=== PATIENT | female | born 1975 | race Caucasian/White ===

== ENCOUNTER 2017-03-14 07:20 | Inpatient (IN) ==
--- NOTE | 2017-03-14 07:32 | EKG Report ---
Stationary ECG Study [facility] Test Date: 03/14/2017 7:27:10 AM Pat Name: DONNIE NICOLE Department: Room: Gender: F Grooming Assistant: : 1975 Requested by: Driss Cheng Order Number: [id number] Reading MD: MAYO PALMA Intervals [place] Rate: 59 P: 21 [place]: 143 QRS: 32 QRSD: 92 T: 66 QT: 422 QTc: 420 Interpretive Statements SINUS RHYTHM MODERATE ST DEPRESSION IN THE HIGH LATERAL LEADS AND INFERIOR ST ELEVATION WITH INFERIOR Q WAVES POSSIBLE INJURY PATTERN OR Q WAVE MYOCARDIAL INFARCTION IN EVOLUTION Electronically Signed On 03-14-17 17:26:52 CDT by MAYO PALMA [email or web address]
[2017-03-14] MEDS ORDERED: HEPARIN/NACL 0.9% 2 UNITS/ML 1,000 ML IV ONE (08:19)
[2017-03-14] MEDS ORDERED: LIDOCAINE 1% 20 ML VIAL ONE (08:19)
[2017-03-14 08:20] LABS: CKMB % 7.1 %
[2017-03-14] MEDS ORDERED: HEPARIN/NACL 0.9% 2 UNITS/ML 500 ML IV ONE (08:20)
[2017-03-14] MEDS ORDERED: fentaNYL 100 MCG/2 ML VIAL ONE (08:20)
[2017-03-14] MEDS ORDERED: MIDAZOLAM 2 MG/2 ML VIAL ONE (08:20)
[2017-03-14] MEDS ORDERED: POTASSIUM CHLORIDE 20 MEQ TABLET PO PRN (08:26)
[2017-03-14] MEDS ORDERED: MAGNESIUM SULF RIDER 2 GM in PREMIX 1 EACH IV PRN (08:26)
--- NOTE | 2017-03-14 08:26 | Cardiology History & Physical ---
<Demetria Fitzpatrick E - Last Filed: 03/14/17 08:30> Assessment and Plan - Time spent with patient Time spent with patient: Greater than 30 minutes (1) Acute coronary syndrome Status: Acute Assessment and plan: SEE PLAN OF CARE LISTED BELOW Current Visit: Yes (2) Hypertension Status: Chronic Assessment and plan: SEE PLAN OF CARE LISTED BELOW Current Visit: Yes (3) Dyslipidemia Status: Chronic Assessment and plan: SEE PLAN OF CARE LISTED BELOW Current Visit: Yes (4) Luca's thyroiditis Status: Chronic Assessment and plan: SEE PLAN OF CARE LISTED BELOW Current Visit: Yes (5) Family history of premature coronary artery disease Status: Chronic Assessment and plan: SEE PLAN OF CARE LISTED BELOW Current Visit: Yes History of Present Illness Chief complaint: Chest pain History of present illness: SWIMMING POOL INSTALLER: DR. CHESTER Patient is being seen in the emergency department. 42WF with risk factors significant for: hypertension, dyslipidemia, family history of premature coronary artery disease. History of Luca's thyroiditis diagnosed approximately 1 month ago. Patient had stress test with Dr. Chester approximately 3 months ago and received favorable results. Transferred from [facility] via ambulance after experiencing chest discomfort around 0500 this morning. Chest discomfort woke her from her sleep, described as sharp and stabbing radiating through to her back, worse with deep inspirations. Discomfort waxed and waned. Rates the discomfort as a 7 on a scale of 1-10, currently at a 4 on a 1-10. She did confirm numbness, tingling of both arms, nausea and shortness of breath. She was found to have elevated ST segments in several leads, given Nitroglycerin paste, Aspirin, Lovenox and Morphine. Initial troponin found to be minimally elevated, arrival to ER troponin noted be 2.23. Dr. Allred is present and has discussed the risk and benefits of cardiac catheterization. Patient and are ready to proceed. ASSESSMENT/PLAN: 1. ACS - patient has received aspirin, therapeutic dose of Lovenox, morphine, nitroglycerin paste. She has been taking emergently to the cardiac catheterization lab. 2. HYPERTENSION - will adjust medications accordingly during hospital stay 3. DYSLIPIDEMIA - fasting lipid profile, adjusting statins according 4. LUCA'S THYROIDITIS - recently diagnosed with Luca's thyroiditis. Will obtain a TSH/T4 during hospital stay 5. FAMILY HISTORY PREMATURE CORONARY ARTERY DISEASE - mother had WI in her 40s. Allergies Allergy/AdvReac Type Severity Reaction Status Date / Time Penicillins Allergy Unknown/Unable Verified 03/14/17 07:28 to obtain Review of systems: REVIEW OF SYSTEMS: - Constitutional Constitutional: Present: Fatigue. Absent: syncope, anorexia, night sweats - EENT Eyes: Absent: blurry vision, loss of vision, diplopia Ears: Absent: decreased hearing, ear pain, ear discharge - Cardiovascular Cardiovascular: Present: chest pain with exertion and at rest, dyspnea on exertion. Chest pain worse with deep breath. Denies edema, palpitations. - Respiratory Respiratory: Present: BLANK, denies cough. Absent: wheezing, hemoptysis, change in phlegm color - Gastrointestinal Gastrointestinal: Denies: constipation. Absent: abdominal pain, hematemesis, hematochezia, melena, change in bowel habits, nausea - Genitourinary Genitourinary: Absent: difficulty urinating, dysuria, urinary hesitancy, flank pain - Musculoskeletal Musculoskeletal: Present: Chest pain radiating through to her back between her scapula. Absent: joint swelling, muscle cramps, muscle weakness - Neurological Neurological: Present: normal gait without frequent falls. Absent: dizziness, hemiparesis - Psychiatric Psychiatric: Absent: anxiety, depression, difficulty concentrating - Endocrine Endocrine: Present: fatigue. Absent: cold intolerance, heat intolerance, polyuria, polyphagia, polydipsia - Hematologic/Lymphatic Hematologic/Lymphatic: Present: easy bruising. Absent: easy bleeding -Integumentary Integumentary: Absent: lesions, rashes, skin breakdown Medical,Surgical,& Family Hx - Medical History Cardio: History of: Hypertension No history of: CAD, WI Psychological: History of: Anxiety Disorders Endocrine: History of: Dyslipidemia, Thyroid Disorder (hasimoto) Respiratory: History of: Pulmonary Embolism - Social History Smoking Status: Never smoker Have you smoked in the last 12 months: No Frequency of Alcohol Use: None Type of Drug Use: None Marital Status: Lives With:: Spouse Functional capacity: independent ambulation Cardiology Physical Exam - Constitutional Vitals: Vital Signs Temp Pulse Resp BP Pulse Ox 96.9 F L 68 18 153/109 100 03/14/17 07:18 03/14/17 07:18 03/14/17 07:34 03/14/17 07:18 03/14/17 07:18 Intake and Output 03/13/17 03/14/17 03/14/17 23:59 07:59 15:59 Other: Weight 76.657 kg Patient Weight 03/14/17 23:59 Weight 76.657 kg Exam: General: [Appears well with no apparent distress.] [Pleasant and cooperative. ] [Appears comfortable.] HEENT: [PERRL, normocephalic, atraumatic. Mucous membranes moist. No jaundice noted. Conjunctiva moist and clear, sclerae anicteric] Neck: No JVD/HJR, no thyromegaly or lymphadenopathy noted. No carotid bruit appreciated Cardiac: [Regular rate and rhythm.] [No murmur rub or gallop.] Lungs: [Clear to auscultation without accessory muscle use to assist the respiratory pattern.] Oxygen in use via nasal cannula Abdomen: Soft, bowel sounds normoactive. Nontender and nondistended. No abdominal bruit or thrill noted. No masses noted. Musculoskeletal: No fluid collection. Decreased range of motion is noted. Extremities: No clubbing, cyanosis noted. [ No edema noted.] Upper extremity pulses 2+. Lower extremity pulses 2+. Capillary refill less than 3 seconds. Skin: No unusual lesions or rashes. No skin breakdown appreciated. Neuro: Awake, alert and oriented 3. Moves all extremities well without hemiparesis or paralysis. No essential tremor is appreciated. Result/EKG - Labs Lab Results: I have reviewed the past 24 hour labs - Diagnostic Findings Procedure: Chest x-ray: pending - EKG EKG results: interpreted by me EKG shows: sinus rhythm <Lisa Allred - Last Filed: 03/14/17 09:44> History of Present Illness History of present illness: I have personally interviewed and evaluated the patient, reviewed the chart and discussed medical decision-making with Practitioner Amari. I have read this note and agree with her documentation here in. Additionally she was diagnosed with a pulmonary embolism in July completed 6 months of therapy, recently stopped her Eliquis. Her initial ECG was borderline for meeting criteria of inferior ST elevation, subsequent ECGs were less impressive. However her cardiac biomarkers are minimally positive. She is continuing to have chest discomfort Although it is dramatically improved from her initial presentation. She denies IV contrast allergy, her thyroiditis is currently being treated. She has no contraindication to dual antiplatelet therapy. The patient was evaluated emergently in the emergency room and taken emergently to the Cut Out Worker. She was found to have 100% occluded distal right coronary artery which was treated with percutaneous stenting. She has relatively small left coronary arteries, and has some small vessel disease as well that is best medically managed. Cardiology Physical Exam - Constitutional Vitals: Vital Signs Temp Pulse Resp BP Pulse Ox 96.9 F L 68 18 153/109 100 03/14/17 07:18 03/14/17 07:18 03/14/17 07:34 03/14/17 07:18 03/14/17 07:18 Intake and Output 03/13/17 03/14/17 03/14/17 23:59 07:59 15:59 Other: Weight 76.657 kg Patient Weight 03/14/17 23:59 Weight 76.657 kg Result/EKG - Labs Labs: Laboratory Results - last 24 hr 03/14/17 07:34 Total Creatine Kinase 426 H CK-MB (CK-2) 30.2 H CK and CKMB Interp 7.1 Troponin I 2.230 H
[2017-03-14 08:31] LABS: Troponin I Only 2.23 NG/ML (0.00-0.045)
[2017-03-14] MEDS ORDERED: ENOXAPARIN 30 MG/0.3 ML SYRINGE ONE (08:32)
[2017-03-14] MEDS ORDERED: EPTIFIBATIDE 20,000 MCG/10 ML VIAL ONE (08:33)
[2017-03-14] MEDS ORDERED: EPTIFIBATIDE 75 MG/100 ML BOTTLE IV ONE (08:40)
[2017-03-14] MEDS ORDERED: TICAGRELOR 90 MG TABLET ONE (09:01)
--- NOTE | 2017-03-14 09:25 | Emergency Department Note ---
Micaela Hutchinson Rolonda, am scribing for, and in the presence of, Driss Juarez MD 08:32. Ann Hutchinson Phillip K, MD, personally performed the services described in this documentation, ascribed by Ed Hinojosa in my presence, and it is both accurate and complete 924 . Arrival - Arrival Chief Complaint: Chest Pain ED Nursing Triage Note: [facility] pt had a troponin of 0.290. denies pain Mode of Arrival: Stretcher Limitations: No Limitations Source: Patient, Old Records Reviewed, RN Notes Reviewed - History of Present Illness HPI Narrative: Pt is a 42 y/o female who was transferred to ED for further evaluation of sharp mid chest pain with an onset of earlier this morning. Pt has a PMHx of HTN and HLD. She states that she awakened with mid chest pain this morning, went to [facility], and was transferred here. She states that the chest pain spread to her back and worsens with deep inspirations. Pt states that she had a stress test performed by Dr. Jade x3 months ago and results were nml. Pt confirms associated sxs of tingling/ numbness in both arms, AOB, N/V, and dyspnea on exertion. She states that she was give NTG patch and Morphine. No other complaint/pain in ED. Onset (ago): hour(s) Consistency: constant Severity: moderate Severity scale (1-10): 4 Quality: sharp Allergies/Adverse Reactions: Allergies Allergy/AdvReac Type Severity Reaction Status Date / Time Penicillins Allergy Unknown/Unable Verified 03/14/17 07:28 to obtain Review of System - Review of System 12 point system: reviewed and no additional remarkable complaints except as stated - Review of System Constitutional: Absent: chills Eyes: Absent: discharge Head/Ears/Nose/Throat: Absent: earache Respiratory: Present: respiratory distress. Absent: cough Cardiovascular: Present: dyspnea on exertion Gastrointestinal: Present: nausea, vomiting. Absent: abdominal pain Genitourinary female: Absent: dysuria Musculoskeletal: Absent: arm pain, back pain Skin: Absent: rash Neurological: Present: numbness, paresthesias. Absent: headache Psychiatric: Absent: anxiety Endocrine: Absent: cold intolerance Hematological/Lymphatic: Absent: easy bleeding Allergic/Immunologic: Absent: facial swelling Medical,Surgical,& Family Hx - Medical History Cardio: History of: Hypertension Psychological: History of: Anxiety Disorders Endocrine: History of: Dyslipidemia, Thyroid Disorder (hasimoto) Respiratory: History of: Pulmonary Embolism - Social History Smoking Status: Never smoker Frequency of Alcohol Use: None Type of Drug Use: None Exam Vital Signs: Vital Signs Temperature 96.9 F L 03/14/17 07:18 Pulse Rate 68 03/14/17 07:18 Respiratory Rate 18 03/14/17 07:34 Blood Pressure 153/109 03/14/17 07:18 O2 Sat by Pulse Oximetry 100 03/14/17 07:18 - General General appearance: alert, in no apparent distress - Head Head exam: Present: atraumatic, normocephalic - Eye Eye exam: Present: PERRL, EOMI - ENT ENT exam: Present: mucous membranes moist. Absent: mucous membranes dry - Neck Neck exam: Present: full ROM. Absent: tenderness - Chest Chest inspection: Present: symmetric chest wall rise, tenderness (anterior chest wall) - Respiratory Respiratory exam: Present: normal lung sounds bilaterally. Absent: rales - Cardiovascular Cardiovascular exam: Present: regular rate, normal rhythm, normal heart sounds - Abdominal Exam Abdominal exam: Present: soft, normal bowel sounds. Absent: tenderness - Rectal Exam Rectal exam: Present: deferred - Extremities Exam Extremities exam: Present: normal inspection - Back Exam Back exam: Present: normal inspection - Neurological Exam Neurological exam: Present: alert, oriented X3. Absent: motor sensory deficit - Psychiatric Psychiatric exam: Present: normal affect, normal mood - Skin Skin exam: Present: warm, dry Course Course Narrative: Patient discussed with Dr. Allred who saw the patient in the ED and took to the Director Of Digital Platforms. Her EKG at [facility] was suggested for a possible ST elevation in leads III and aVF. Her repeat EKG here was also questionable. Patient did have an increase in her cardiac enzymes from 0.015 to result 0.29 [facility]. Attempted to call Dr. Allred at [phone]. Results - Labs Lab Results: I have reviewed the patients labs (Patient's her troponin was 2.2 with a CK-MB of 30.) - EKG EKG results: interpreted by ERMD, sinus rhythm (Suggestive of ST elevation in leads III and aVF. Patient also has Q waves in 3 and aVF) Disposition Clinical Impression: Chest pain, Acute inferior myocardial infarction Clinical Impression: (Ruled Out): Possible acute myocardial infarction, Case discussed with: patient, patient's family Disposition: Still a Patient Condition: Guarded
[2017-03-14] MEDS ORDERED: NITROGLYCERIN SL 0.4 MG TABLET SL PRN (09:35)
[2017-03-14] MEDS ORDERED: ONDANSETRON 4 MG/2 ML VIAL IV PRN (09:35)
[2017-03-14] MEDS ORDERED: ACETAMINOPHEN/CODEINE 300-30 MG TABLET PO PRN (09:35)
[2017-03-14] MEDS ORDERED: ZALEPLON 5 MG CAPSULE PO PRN (09:35)
[2017-03-14] MEDS ORDERED: ACETAMINOPHEN 325 MG TABLET PO PRN (09:35)
--- NOTE | 2017-03-14 09:45 | History and Physical Update ---
Sedation H&P Update - History and Physical H&P was reviewed, the patient examined and there: are no changes in the patients condition since last H&P was completed. - Dictation Physical: refer to H&P completed by admitting physician - Physical Exam Mental Status: alert and oriented Heart: regular rate and rhythm Lung: clear to auscultation Abdomen: within normal limits Vitals: within normal limits History and Physical Changes: This is a late entry because the patient was taken emergently to the Fast Food Supervisor. - Sedation Plan for Sedation: moderate Patient Consent: Procedure disscussed with patient and patinet has consented., Risks and benefits were discussed with patient,including infection,, bleeding, injury to surrounding structures, seizure, temporary nerve, Patient understands and accepts potential risks/benefits and agrees to, proceed. ASA Class: IV Airway Assessment: Class II: Soft palate, uvula, fauces visible
[2017-03-14] MEDS ORDERED: SODIUM CHLORIDE 0.45% 1,000 ML IV SCH (10:00)
--- NOTE | 2017-03-14 10:10 | Cardiology Operative Report ---
Date of Procedure:: 03/14/17 Pre-op diagnosis: NSTEMI Post-op diagnosis: other (Severe 3V-CAD) Procedure: 1. Selective left and right coronary angiography. 2. Left heart catheterization with left ventriculogram. 3. Right iliac angiography to rule out vascular complications. 4. Percutaneous intervention of the distal RCA with placement of Synergy 3x20 mm drug-eluting stent. 5. Application of Mynx hemostasis device to the right femoral arteriotomy site. Impression: 1. Severe three-vessel coronary artery disease. A. Distal right coronary artery is 100% stenosis. B. Mid LAD with 70% stenosis, 2 mm caliber. C. First obtuse marginal with 80% stenosis, less than 2 mm caliber. 2. Right dominant coronary arteries. 3. Ejection fraction 60 %. 4. Angiographically normal right iliac artery without evidence of vascular complications. 5. Successful PCI of the distal right coronary artery as described above. Plan: 1. DAPT > 12 months. 2. Risk factor modification. 3. Medical management of the other residual coronary disease. Equipment: Diagnostic 6 Ghanaian JL4, pigtail catheters, 4 Ghanaian JR 3.5 Guiding 6 Ghanaian JR 3.5 sidehole catheter, 300 cm Intertwine wire, over the wire mini trek 2 x 12 mm balloon, synergy 3 x 20 mm drug-eluting stent, Trek 3 x 15 mm non-compliant balloon Hemodynamics: Aortic pressure 152/53 mmHg, left ventricular pressure 158/11 mmHg, LVEDP 15 mmHg Sedation: Versed 2 mg, fentanyl 50 mcg Procedure: After informed consent was obtained the patient was prepped and draped in sterile fashion. The right groin was infiltrated with 1% lidocaine and the right femoral artery was accessed via modified Seldinger technique using a micropuncture needle and a 6 Ghanaian femoral arterial sheath was placed. All catheter exchanges were performed over a guidewire under fluoroscopic guidance. Diagnostic 6 [place]ian JL4 and guiding 6 Ghanaian JR4 catheters were advanced to the left and right coronary arteries respectively and multiple cineangiograms were performed in varying degrees of obliquity and angulation. The patient then underwent percutaneous coronary intervention of the right coronary artery as described below. Thereafter a pigtail catheter was advanced into the left ventricle where hemodynamics were obtained followed by left ventriculogram. At conclusion of the procedure right iliac angiography was performed to rule out vascular complications. A Mynx hemostasis device was unsuccessfully applied to the right femoral arteriotomy site. Findings: 1. The left main artery is angiographically normal. 2. The left anterior descending artery extends to the apex. In general it is a small vessel, particularly in the mid to distal segment. There are diffuse luminal irregularities with up to 70% stenosis after the second diagonal artery. The caliber of the vessels approximately 2 mm in this region. 3. There is not an intermediate ramus branch. 4. The circumflex artery is a nondominant vessel. There are luminal irregularities throughout the system. The first marginal artery has approximately 80% stenosis, but the vessel caliber is less than 2 mm. 5. The right coronary artery has luminal irregularities throughout culminating with 100% stenosis in the distal segment. There is also severe stenosis in the more distal portion of the posterior lateral branch, where the vessel caliber is less than 1 mm. The right coronary artery is dominant. 6. Ejection fraction is 60 % with mild hypokinesis of the basal to mid inferior wall. 7. No significant mitral regurgitation. 8. No significant aortic stenosis. 9. The right iliac artery is angiographically normal without evidence of vascular complications. PCI: The patient was anticoagulated with Lovenox. A guiding 6 Ghanaian JR4 catheter was initially introduced into the artery for diagnostic angiography, but there was significant pressure waveform dampening. This was then exchanged for a guiding 6 Ghanaian JR 3.5 sidehole which catheter was advanced to the right coronary artery. A [place] 300 cm wire was used to traverse the right coronary artery. A mini trek over the wire 2 x 12 mm balloon was advanced to the site of stenosis and angioplasty was performed at 14 jane. Thereafter, a synergy 3 x 20 mm drug-eluting stent was advanced to the site of angioplasty, and successfully deployed at 11 jane. Afterwards, a non-compliant trek 3 x 15 mm balloon was advanced into the stented segment and post-dilation was performed at 14 jane. Satisfactory angiographic result was obtained with appropriate step- up proximally and distally, and no evidence of residual vascular complications. Preoperatively there was 100% stenosis with JEN 0 flow, postoperatively there is 0% residual stenosis with JEN-3 flow. Contrast use: Omnipaque 179 cc Fluoro time: 11.7 minutes Complications: none Specimens removed: none Devices implanted: stent and mynx as described above Anesthesia: moderate conscious sedation Surgeon / Physician: Lisa Allred Header Set Up Operator: none (Sukumar Flores) Estimated blood loss: minimal Specimens: none sent Condition: stable Disposition: ICU/CCU
[2017-03-14] MEDS: PANTOPRAZOLE 40 MG TABLET PO SCH (11:04)
[2017-03-14] MEDS: METOPROLOL TARTRATE 5 MG/5 ML VIAL IV SCH ×2 (11:31→11:32)
[2017-03-14 11:47] LABS: CKMB % 8.5 %
[2017-03-14 11:50] LABS: Troponin I Only 60.2 NG/ML (0.00-0.045)
[2017-03-14 11:56] LABS: Free T4 (Free Thyroxine) 1.12 NG/DL (0.76-1.46); Thyroid Stimulating Hormone 1.33 uIU/ml (0.358-3.74)
[2017-03-14] MEDS ORDERED: NITROGLYCERIN 2% OINT 1 INCH/GM PACK TOP SCH (12:00)
--- NOTE | 2017-03-14 12:00 | EKG Report ---
Stationary ECG Study [facility] Test Date: 03/14/2017 11:57:58 AM Pat Name: DONNIE NICOLE Department: Room: 120 Gender: F Metal Checker: : 1975 Requested by: Demetria Woodall Order Number: [id number] Reading MD: MAYO PALMA Intervals [place] Rate: 62 P: 20 [place]: 134 QRS: 17 QRSD: 81 T: 31 QT: 425 QTc: 430 Interpretive Statements SINUS RHYTHM Electronically Signed On 03-14-17 19:13:33 CDT by MAYO PALMA [email or web address]
[2017-03-14 14:07] LABS: Apearance,Urine CLEAR (Clear); Bilirubin,Urine Negative (Negative); Blood, Urine Moderate mg/dL (Negative); Glucose,Urine (UA) Negative (Negative); Ketones,Urine Negative (Negative); Mucus,Urine Occasional /LPF (Occasional); Nitrite,Urine Negative (Negative); Protein,Urine 30 MG/DL; RBC,Urine 5 /HPF (0-4); Squamous Epithelial Cell,Urine Few /HPF (0-10); Urine Color Yellow (Yellow); Urine Specific Gravity > 1.060 (1.001-1.035); Urine Urobilinogen < 2.0 EU/DL (0.2-1.0); WBC,Urine 4 /HPF (0-6)
[2017-03-14 14:08] LABS: Barbiturates Screen,Urine Negative (Negative); Benzodiazepines Screen,Urine Positive (Negative); Cannabinoid Screen,Urine Negative (Negative); Opiate Screen,Urine Positive (Negative); Phencyclidine Screen,Urine Negative (Negative)
--- NOTE | 2017-03-14 14:43 | EKG Report ---
Stationary ECG Study [facility] Test Date: 03/14/2017 2:41:59 PM Pat Name: DONNIE NICOLE Department: Room: 120 Gender: F Manager Creative: DANIEL : 1975 Requested by: Demetria Woodall Order Number: [id number] Reading MD: MAYO PALMA Intervals [place] Rate: 72 P: 29 DE: 129 QRS: 30 QRSD: 84 T: 33 QT: 404 QTc: 428 Interpretive Statements SINUS RHYTHM Electronically Signed On 03-14-17 19:16:16 CDT by MAYO PALMA [email or web address]
--- NOTE | 2017-03-14 15:41 | ECHO Report ---
Angie Barney Exam Date: 03/14/2017 12:26 Referring Physician: Technologist: Carmita Webb Age: 42 Ht (in): 65 Wt (lb): 169 Gender: F Exam Location: [facility] Echo Indications: chest pain, dyslipidemia, thyroid disorder, hx. pulmonary embolism BP: 153 / 109 HR: 68 Rhythm: Sinus Technical Quality: limited IMPRESSIONS Left ventricular ejection fraction is estimated at 55-60 %. Diastolic parameters are most consistent with grade 2 diastolic dysfunction or pseudo normalization. There is poor endocardial resolution but I don't appreciate regional wall motion abnormality. Anatomically normal mitral valve with mild mitral regurgitation. MEASUREMENTS (Male / Female) Normal Values 2D ECHO LV Diastolic Diameter PLAX 4.0 cm 4.2 - 5.9 / 3.9 - 5.3 cm LV Systolic Diameter PLAX 2.4 cm LV Fractional Shortening PLAX 38.8 % IVS Diastolic Thickness 0.8 cm 0.6 - 1.0 / 0.6 - 0.9 cm LVPW Diastolic Thickness 1.0 cm 0.6 - 1.0 / 0.6 - 0.9 cm Aortic Root Diameter 2.0 cm LA Systolic Diameter LX 3.1 cm 3.0 - 4.0 / 2.7 - 3.8 cm FINDINGS Left Ventricle Normal left ventricular cavity size. Left ventricular ejection fraction is estimated at 55-60 %. There is poor endocardial resolution but I don't appreciate regional wall motion abnormality. Diastolic parameters are most consistent with grade 2 diastolic dysfunction or pseudo normalization. Right Ventricle Normal right ventricular size. Right Atrium Normal right atrial size. Left Atrium Normal left atrial size. Mitral Valve Anatomically normal mitral valve with mild mitral regurgitation. Aortic Valve The aortic valve is trileaflet and has normal motion. Tricuspid Valve Morphologically normal tricuspid valve. Pulmonic Valve Morphologically normal pulmonic valve. Pericardium No pericardial effusion. Aorta Normal size aortic root and proximal ascending aorta. Virgen Elkins (Electronically Signed) Final Date: 14 March 2017 15:40
[2017-03-14 15:58] LABS: Basophils % 0.2 % (0.0-0.8); Eosinophils # 0.1 10*3/uL (0.0-0.87); Eosinophils % 0.3 % (0.00-10.9); Hematocrit 34.2 VOL% (35.7-47.0); Hemoglobin 11.9 GM/DL (12.0-16.0); Immature Granulocytes % 0.9 %; Immature Granulocytes Absolute 0.14 #; Lymphocytes # 2.5 10*3/uL (1.4-4.0); Lymphocytes % 15.8 % (21.3-54.2); Mean Corpuscular HGB Conc 34.8 GM/DL (32-36); Mean Corpuscular Hemoglobin 34 PG (27-34); Mean Corpuscular Volume 98.3 FL (87-102); Mean Platelet Volume 10.2 FL (9.6-12.0); Monocytes # 0.8 10*3/uL (0.11-0.8); Monocytes % 5.2 % (1.7-12.7); Neutrophils # 12.3 10*3/uL (1.4-7.4); Neutrophils % 77.6 % (38.7-73.9); Platelet Count 280 T/CUMM (130-400); Red Blood Count 3.48 MC/CUMM (3.8-5.5); Red Cell Distribution Width 13.2 % (9.3-17.3); White Blood Count 15.8 T/CUMM (4-12)
[2017-03-14] MEDS: LISINOPRIL 2.5 MG TABLET PO SCH (16:25)
[2017-03-14 16:26] LABS: Calcium 8.2 MG/DL (8.5-10.1); Magnesium 2.3 MG/DL (1.8-2.4); Osmolality,Calculated 279.5 MOS/KG (273-304); Potassium 3.6 MMOL/L (3.5-5.1)
[2017-03-14] MEDS: CARVEDILOL 6.25 MG TABLET PO SCH (17:48)
[2017-03-14] MEDS: MORPHINE 2 MG/1 ML SYRINGE IV PRN (18:29)
[2017-03-14] MEDS: TICAGRELOR 90 MG TABLET PO SCH (20:10)
[2017-03-14] MEDS: ROSUVASTATIN 20 MG TABLET PO SCH (20:10)
[2017-03-15 04:59] LABS: Basophils % 0.3 % (0.0-0.8); Eosinophils # 0.1 10*3/uL (0.0-0.87); Eosinophils % 0.8 % (0.00-10.9); Hematocrit 30.9 VOL% (35.7-47.0); Hemoglobin 10.7 GM/DL (12.0-16.0); Immature Granulocytes % 0.5 %; Immature Granulocytes Absolute 0.05 #; Lymphocytes # 3.5 10*3/uL (1.4-4.0); Lymphocytes % 31.7 % (21.3-54.2); Mean Corpuscular HGB Conc 34.6 GM/DL (32-36); Mean Corpuscular Hemoglobin 35 PG (27-34); Mean Platelet Volume 10.2 FL (9.6-12.0); Monocytes # 0.6 10*3/uL (0.11-0.8); Monocytes % 5.1 % (1.7-12.7); Neutrophils # 6.8 10*3/uL (1.4-7.4); Neutrophils % 61.6 % (38.7-73.9); Platelet Count 223 T/CUMM (130-400); Red Blood Count 3.09 MC/CUMM (3.8-5.5); Red Cell Distribution Width 13.6 % (9.3-17.3)
[2017-03-15 05:34] LABS: Magnesium 2.4 MG/DL (1.8-2.4); Osmolality,Calculated 282.3 MOS/KG (273-304); Potassium 3.8 MMOL/L (3.5-5.1)
[2017-03-15 05:41] LABS: Bilirubin,Total 0.9 MG/DL (0.2-1.0); Calcium 7.9 MG/DL (8.5-10.1); Osmolality,Calculated 282.3 MOS/KG (273-304); Potassium 3.9 MMOL/L (3.5-5.1); Risk Ratio 5.86; Total Protein 5.6 G/DL (6.4-8.3); VLDL CHOLESTEROL 36.6 MG/DL
--- NOTE | 2017-03-15 07:49 | EKG Report ---
Stationary ECG Study [facility] Test Date: 03/15/2017 7:47:25 AM Pat Name: DONNIE NICOLE Department: Room: 120 Gender: F Highway Technician: DAGO : 1975 Requested by: Lisa Lopez Order Number: [id number] Reading MD: LISA LOPEZ Intervals [place] Rate: 67 P: 9 [place]: 142 QRS: 23 QRSD: 91 T: -38 QT: 429 QTc: 444 Interpretive Statements SINUS RHYTHM [address] DEVIATION AND MODERATE T-WAVE ABNORMALITY, CONSIDER INFERIOR ISCHEMIA Electronically Signed On 03-17-17 10:53:15 CDT by LISA LOPEZ [email or web address]
--- NOTE | 2017-03-15 07:52 | Cardiology Progress Note ---
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 Jade Summary: 42WF with risk factors significant for: hypertension, dyslipidemia, family history of premature coronary artery disease. History of Luca's thyroiditis diagnosed approximately 1 month ago, pulmonary embolism diagnosed in July and treated for greater than 6 months with anticoagulation. She was admitted with acute inferior IA and underwent emergent PCI to her right coronary artery. She also has some left-sided coronary disease, but this will be medically managed due to the small size of her vessels. March 15, 2017: Clinically she is doing well, she denies any chest pain, shortness of breath, right groin pain. Overall she is feeling much improved. She is hemodynamically stable. No arrhythmias observed. ASSESSMENT/PLAN: 1. Acute inferior IA-she is now status post PCI to the RCA. She will be maintained on statin therapy, beta blockers, dual antiplatelet therapy. Cardiac rehab has been consulted. 2. HYPERTENSION - will adjust medications accordingly during hospital stay 3. DYSLIPIDEMIA - fasting lipid profile, adjusting statins according 4. LUCA'S THYROIDITIS -stable 5. FAMILY HISTORY PREMATURE CORONARY ARTERY DISEASE - mother had IA in her 40s. We will transfer her to the floor today. Exam (Progress Note) - Constitutional Vitals: Period Temp Pulse Resp BP Sys/Zeng Pulse Ox Last 24 Hr 98 F-98.7 F 60-75 11-21 85-143/53-84 96-100 Exam: General appearance: normal weight, no acute distress - Head Head exam: Present: normal inspection, normocephalic, atraumatic. Absent: hematoma, laceration - Eye Eye exam: Present: EOMI. Absent: conjunctival injection, nystagmus, periorbital swelling, scleral icterus, laceration to eyelids Pupils: Present: PERRL. Absent: constricted, dilated, fixed, irregular, unequal - ENT ENT exam: Present: normal exam, normal external ear exam - Neck Neck exam: Present: normal inspection. Absent: lymphadenopathy, meningismus, tenderness, thyromegaly - Respiratory Respiratory exam: Present: clear to auscultation bilaterally. Absent: accessory muscle use, chest wall tenderness - Cardiovascular Cardiovascular exam: Present: regular rate and rhythm. Absent: carotid bruit, gallop, JVD, rubs - GI/Abdominal GI/Abdominal exam: Present: normal bowel sounds, soft. Absent: distended, firm , guarding, hernia, mass, tenderness, rebound. - Extremities Exam Extremities exam: Present: normal inspection, normal capillary refill. Absent: calf tenderness, edema - Back Exam Back exam: Present: normal inspection. Absent: muscle spasm, vertebral tenderness - Neurological Exam Neurological exam: Present: alert, oriented X3, grossly intact without resting or intention tremor - Psychiatric Psychiatric exam: Present: normal affect, normal mood - Skin Skin exam: Present: normal color, warm, dry, intact. Absent: cyanosis, diaphoretic, rash, urticaria Right groin is without hematoma or bruit. Result/EKG - Labs CBC & BMP: 03/15/17 04:43 03/15/17 04:43 Lab Results: I have reviewed the past 24 hour labs Labs: Laboratory Results - last 24 hr 03/14/17 03/14/17 03/14/17 07:34 10:32 10:32 WBC RBC Hgb Hct MCV MCH MCHC RDW Plt Count MPV Neut % (Auto) Lymph % (Auto) Castro % (Auto) Eos % (Auto) Baso % (Auto) Neut # (Auto) Lymph # (Auto) Castro # (Auto) Eos # (Auto) Baso # (Auto) Immature Gran % Nucleated RBC % Immature Gran # Nucleated RBCs # Immature Plt Fraction Sodium Potassium Chloride Carbon Dioxide Anion Gap BUN Creatinine GFR Calculation BUN/Creatinine Ratio Glucose Calculated Osmolality Calcium Magnesium Total Bilirubin AST ALT Alkaline Phosphatase Total Creatine Kinase 426 H 1736 H D CK-MB (CK-2) 30.2 H 147.1 H D CK and CKMB Interp 7.1 8.5 Troponin I 2.230 H 60.200 H D Total Protein Albumin Globulin Albumin/Globulin Ratio Triglycerides Cholesterol LDL Cholesterol VLDL Cholesterol HDL Cholesterol Heart Disease Risk Ratio Free T4 1.12 TSH 3rd Generation 1.330 Urine Color Urine Appearance Urine pH Ur Specific [place] Urine Protein Urine Glucose (UA) Urine Ketones Urine Blood Urine Nitrate Urine Bilirubin Urine Urobilinogen Urine Leukocytes Urine RBC Urine WBC Ur Squamous Epith Cells Urine Mucus Ur Culture Indicated? Urine Opiates Screen Ur Barbiturates Screen Ur Phencyclidine Scrn U Amphetamine/Methamph U Benzodiazepines Scrn U Cocaine Metab Screen U Cannabinoids Screen 03/14/17 03/14/17 03/14/17 13:40 13:40 15:45 WBC 15.8 H RBC 3.48 L Hgb 11.9 L Hct 34.2 L MCV 98.3 MCH 34 MCHC 34.8 RDW 13.2 Plt Count 280 MPV 10.2 Neut % (Auto) 77.6 H Lymph % (Auto) 15.8 L Castro % (Auto) 5.2 Eos % (Auto) 0.3 Baso % (Auto) 0.2 Neut # (Auto) 12.3 H Lymph # (Auto) 2.5 Castro # (Auto) 0.8 Eos # (Auto) 0.1 Baso # (Auto) 0.0 Immature Gran % 0.9 Nucleated RBC % 0.0 Immature Gran # 0.14 Nucleated RBCs # 0.00 Immature Plt Fraction 0.0 Sodium Potassium Chloride Carbon Dioxide Anion Gap BUN Creatinine GFR Calculation BUN/Creatinine Ratio Glucose Calculated Osmolality Calcium Magnesium Total Bilirubin AST ALT Alkaline Phosphatase Total Creatine Kinase CK-MB (CK-2) CK and CKMB Interp Troponin I Total Protein Albumin Globulin Albumin/Globulin Ratio Triglycerides Cholesterol LDL Cholesterol VLDL Cholesterol HDL Cholesterol Heart Disease Risk Ratio Free T4 TSH 3rd Generation Urine Color Yellow Urine Appearance Clear Urine pH 6.0 Ur Specific [place] > 1.060 H Urine Protein 30 Urine Glucose (UA) Negative Urine Ketones Negative Urine Blood Moderate Urine Nitrate Negative Urine Bilirubin Negative Urine Urobilinogen < 2.0 H Urine Leukocytes Negative Urine RBC 5 Urine WBC 4 Ur Squamous Epith Cells Few Urine Mucus Occasional Ur Culture Indicated? Not indicated Urine Opiates Screen Positive H Ur Barbiturates Screen Negative Ur Phencyclidine Scrn Negative U Amphetamine/Methamph Negative U Benzodiazepines Scrn Positive H U Cocaine Metab Screen Negative U Cannabinoids Screen Negative 03/14/17 03/15/17 03/15/17 15:45 04:43 04:43 WBC 11.0 D RBC 3.09 L Hgb 10.7 L Hct 30.9 L MCV 100.0 MCH 35 H MCHC 34.6 RDW 13.6 Plt Count 223 D MPV 10.2 Neut % (Auto) 61.6 Lymph % (Auto) 31.7 Castro % (Auto) 5.1 Eos % (Auto) 0.8 Baso % (Auto) 0.3 Neut # (Auto) 6.8 Lymph # (Auto) 3.5 Castro # (Auto) 0.6 Eos # (Auto) 0.1 Baso # (Auto) 0.0 Immature Gran % 0.5 Nucleated RBC % 0.0 Immature Gran # 0.05 Nucleated RBCs # 0.00 Immature Plt Fraction 0.0 Sodium 139 141 Potassium 3.6 3.9 Chloride 108 H 110 H Carbon Dioxide 24 22 Anion Gap 10.6 12.9 BUN 9 12 Creatinine 0.90 0.70 GFR Calculation 84 114 BUN/Creatinine Ratio 10.00 17.00 Glucose 174 H 137 H Calculated Osmolality 279.5 282.3 Calcium 8.2 L 7.9 L Magnesium 2.3 Total Bilirubin 0.90 AST 205 H ALT 180 H Alkaline Phosphatase 52 Total Creatine Kinase CK-MB (CK-2) CK and CKMB Interp Troponin I Total Protein 5.6 L Albumin 3.0 L Globulin 2.6 Albumin/Globulin Ratio 1.1 Triglycerides 183 H Cholesterol 164 LDL Cholesterol 110.0 VLDL Cholesterol 36.6 HDL Cholesterol 28 L Heart Disease Risk Ratio 5.86 Free T4 TSH 3rd Generation Urine Color Urine Appearance Urine pH Ur Specific [place] Urine Protein Urine Glucose (UA) Urine Ketones Urine Blood Urine Nitrate Urine Bilirubin Urine Urobilinogen Urine Leukocytes Urine RBC Urine WBC Ur Squamous Epith Cells Urine Mucus Ur Culture Indicated? Urine Opiates Screen Ur Barbiturates Screen Ur Phencyclidine Scrn U Amphetamine/Methamph U Benzodiazepines Scrn U Cocaine Metab Screen U Cannabinoids Screen 03/15/17 04:43 WBC RBC Hgb Hct MCV MCH MCHC RDW Plt Count MPV Neut % (Auto) Lymph % (Auto) Castro % (Auto) Eos % (Auto) Baso % (Auto) Neut # (Auto) Lymph # (Auto) Castro # (Auto) Eos # (Auto) Baso # (Auto) Immature Gran % Nucleated RBC % Immature Gran # Nucleated RBCs # Immature Plt Fraction Sodium 141 Potassium 3.8 Chloride 109 H Carbon Dioxide 24 Anion Gap 11.8 BUN 12 Creatinine 0.70 GFR Calculation 114 BUN/Creatinine Ratio 17.00 Glucose 135 H Calculated Osmolality 282.3 Calcium 8.0 L Magnesium 2.4 Total Bilirubin AST ALT Alkaline Phosphatase Total Creatine Kinase CK-MB (CK-2) CK and CKMB Interp Troponin I Total Protein Albumin Globulin Albumin/Globulin Ratio Triglycerides Cholesterol LDL Cholesterol VLDL Cholesterol HDL Cholesterol Heart Disease Risk Ratio Free T4 TSH 3rd Generation Urine Color Urine Appearance Urine pH Ur Specific [place] Urine Protein Urine Glucose (UA) Urine Ketones Urine Blood Urine Nitrate Urine Bilirubin Urine Urobilinogen Urine Leukocytes Urine RBC Urine WBC Ur Squamous Epith Cells Urine Mucus Ur Culture Indicated? Urine Opiates Screen Ur Barbiturates Screen Ur Phencyclidine Scrn U Amphetamine/Methamph U Benzodiazepines Scrn U Cocaine Metab Screen U Cannabinoids Screen - EKG EKG results: interpreted by me, sinus rhythm (Evolutionary changes of the inferior leads) Specialty Discharge - Follow Up or Referrals
[2017-03-15 08:09] LABS: CKMB % 7.9 %
[2017-03-15 08:17] LABS: Troponin I Only 14.5 NG/ML (0.00-0.045)
[2017-03-15] MEDS: PANTOPRAZOLE 40 MG TABLET PO SCH (08:36)
[2017-03-15] MEDS: ASPIRIN EC 81 MG TABLET PO SCH (08:37)
[2017-03-15] MEDS: LISINOPRIL 2.5 MG TABLET PO SCH (08:37)
[2017-03-15] MEDS: CARVEDILOL 6.25 MG TABLET PO SCH ×2 (08:37→16:51)
[2017-03-15] MEDS: ENOXAPARIN 40 MG/0.4 ML SYRINGE SUBCUT SCH (08:37)
[2017-03-15] MEDS: TICAGRELOR 90 MG TABLET PO SCH ×2 (08:37→20:46)
[2017-03-15] MEDS ORDERED: clonazePAM 0.5 MG TABLET PO PRN (12:50)
[2017-03-15] MEDS: ROSUVASTATIN 20 MG TABLET PO SCH (20:46)
[2017-03-15] MEDS: MORPHINE 2 MG/1 ML SYRINGE IV PRN (20:49)
[2017-03-16 05:46] LABS: Basophils % 0.3 % (0.0-0.8); Eosinophils # 0.3 10*3/uL (0.0-0.87); Hematocrit 32.6 VOL% (35.7-47.0); Hemoglobin 10.8 GM/DL (12.0-16.0); Immature Granulocytes % 0.3 %; Immature Granulocytes Absolute 0.03 #; Lymphocytes # 3.1 10*3/uL (1.4-4.0); Lymphocytes % 34.4 % (21.3-54.2); Mean Corpuscular HGB Conc 33.1 GM/DL (32-36); Mean Corpuscular Hemoglobin 33 PG (27-34); Mean Corpuscular Volume 100.9 FL (87-102); Mean Platelet Volume 10.2 FL (9.6-12.0); Monocytes # 0.5 10*3/uL (0.11-0.8); Neutrophils # 5.1 10*3/uL (1.4-7.4); Platelet Count 209 T/CUMM (130-400); Red Blood Count 3.23 MC/CUMM (3.8-5.5); Red Cell Distribution Width 13.5 % (9.3-17.3)
[2017-03-16 06:18] LABS: Albumin 3.2 G/DL (3.4-5.0); Bilirubin,Total 0.5 MG/DL (0.2-1.0); Calcium 8.4 MG/DL (8.5-10.1); Osmolality,Calculated 281.4 MOS/KG (273-304); Potassium 4.1 MMOL/L (3.5-5.1)
[2017-03-16 06:23] LABS: Calcium 8.5 MG/DL (8.5-10.1); Magnesium 2.4 MG/DL (1.8-2.4); Osmolality,Calculated 281.4 MOS/KG (273-304); Potassium 4.1 MMOL/L (3.5-5.1)
[2017-03-16] MEDS ORDERED: LEVOTHYROXINE 25 MCG TABLET PO SCH (09:00)
[2017-03-16] MEDS ORDERED: SPIRONOLACTONE 25 MG TABLET PO SCH (09:00)
[2017-03-16] MEDS ORDERED: NON-FORMULARY MEDICATION (Omeprazole [Omeprazole] 20 MG) PO SCH (09:00)
[2017-03-16] MEDS ORDERED: ESCITALOPRAM 10 MG TABLET PO SCH (09:00)
[2017-03-16] MEDS: ASPIRIN EC 81 MG TABLET PO SCH (09:06)
[2017-03-16] MEDS: CARVEDILOL 6.25 MG TABLET PO SCH (09:06)
[2017-03-16] MEDS: TICAGRELOR 90 MG TABLET PO SCH (09:06)
[2017-03-16] MEDS: PANTOPRAZOLE 40 MG TABLET PO SCH (09:06)
[2017-03-16] MEDS: ENOXAPARIN 40 MG/0.4 ML SYRINGE SUBCUT SCH (09:07)
[2017-03-16] MEDS: LISINOPRIL 2.5 MG TABLET PO SCH (09:10)
--- NOTE | 2017-03-16 11:33 | Discharge Summary ---
Hospital Course - Hospital Course Hospital Course: The patient is a 42-year-old white female with a history of hypertension, hyperlipidemia, pulmonary embolism, rhonchi and history of premature coronary artery disease who was admitted to the hospital on March 14, 2017 with acute inferior UT. She underwent emergent PCI to the right coronary artery with a 3 x 20 mm synergy stent. She was also identified as having severe stenosis in her mid LAD and an obtuse marginal artery, both of which vessels were less than 2 mm in caliber. These are going to be managed medically. She did well postoperatively without any recurrent chest pain, heart failure signs or symptoms, shortness of breath, orthopnea, lower extremity edema. She did not have any significant arrhythmias. Her hemodynamics were well controlled. The right groin is without any evidence of hematoma, bruit, complication. She is requesting to go home and will be discharged home in stable condition. I have reiterated the importance of medication compliance, particularly with the dual antiplatelet therapy. She is being given a Brilinta coupon to take with her prescription. She is requesting to follow-up with me and I will see her in the clinic in 1-2 weeks. Diagnosis - Discharge Diagnosis (1) Acute inferior myocardial infarction Status: Acute (2) Hypertension Status: Chronic (3) Dyslipidemia Status: Chronic (4) Luca's thyroiditis Status: Chronic (5) Family history of premature coronary artery disease Status: Chronic Specialty Discharge - Follow Up or Referrals Follow up with: Lisa Allred MD [Physician] - (1 to 2 week appt) Discharge Plan - Discharge Data Disposition: Disch To Home/Self Care Condition at Discharge: Stable Discharge Diet: heart healthy Activity: no lifting (1 week), other (Return to work in 1 week) Hygiene: may shower Driving: no restrictions - Discharge Medications New Lisinopril [Prinivil] 2.5 mg PO DAILY #30 tablet Rosuvastatin [Crestor] 20 mg PO BEDTIME #30 tablet Ticagrelor [Brilinta] 90 mg PO BID #60 tablet Continue Escitalopram [Lexapro] 10 mg PO DAILY Omeprazole 20 mg PO DAILY clonazePAM TAB [KlonoPIN] 0.25 mg PO BID PRN PRN Reason: Anxiety Levothyroxine Tab [Synthroid Tab] 25 mcg PO DAILY Aspirin EC Tab 81 mg PO DAILY Carvedilol [Coreg] 6.25 mg PO BID Spironolactone 12.5 mg PO DAILY Discontinued Atorvastatin [Lipitor] 10 mg PO BEDTIME Losartan/Hydrochlorothiazide [Losartan-Hctz 100-12.5 mg Tab] 1 each PO DAILY Amlodipine Besylate 10 mg PO DAILY - Follow Up or Referral Follow Up: Lisa Allred MD [Physician] - (1 to 2 week appt) - Forms/Instructions Instructions: Myocardial Infarction (GEN), Coronary Artery Disease (GEN), Left Heart Catheterization (DC), Heart Healthy Diet (GEN), Coronary Intravascular Stent Placement (DC) Additional Discharge Instructions: Monitor BP at home and call office if it is elevated. Exam - Constitutional Vitals: Period Temp Pulse Resp BP Sys/Zeng Pulse Ox Last 24 Hr 96 F-97.6 F 63-78 16-20 101-119/50-74 98-100 Exam: General appearance: normal weight, no acute distress - Head Head exam: Present: normal inspection, normocephalic, atraumatic. Absent: hematoma, laceration - Eye Eye exam: Present: EOMI. Absent: conjunctival injection, nystagmus, periorbital swelling, scleral icterus, laceration to eyelids Pupils: Present: PERRL. Absent: constricted, dilated, fixed, irregular, unequal - ENT ENT exam: Present: normal exam, normal external ear exam - Neck Neck exam: Present: normal inspection. Absent: lymphadenopathy, meningismus, tenderness, thyromegaly - Respiratory Respiratory exam: Present: clear to auscultation bilaterally. Absent: accessory muscle use, chest wall tenderness - Cardiovascular Cardiovascular exam: Present: regular rate and rhythm. Absent: carotid bruit, gallop, JVD, rubs - GI/Abdominal GI/Abdominal exam: Present: normal bowel sounds, soft. Absent: distended, firm , guarding, hernia, mass, tenderness, rebound. - Extremities Exam Extremities exam: Present: normal inspection, normal capillary refill. Absent: calf tenderness, edema - Back Exam Back exam: Present: normal inspection. Absent: muscle spasm, vertebral tenderness - Neurological Exam Neurological exam: Present: alert, oriented X3, grossly intact without resting or intention tremor - Psychiatric Psychiatric exam: Present: normal affect, normal mood - Skin Skin exam: Present: normal color, warm, dry, intact. Absent: cyanosis, diaphoretic, rash, urticaria Right groin is without hematoma or bruit. Discharge Results Procedures and tests throughout hospitalization: Pending Orders 03/14/17 08:20 CL heart Stat 03/14/17 10:32 Homocysteine Routine 03/17/17 04:00 BMP w/ Mg [Basic Metabolic Panel w/Mg] IN AM Comp Blood Count Auto Diff IN AM Comprehensive Metabolic Panel IN AM Labs on day of discharge: Labs from last 24 hours 03/16/17 03/16/17 03/16/17 05:24 05:24 05:24 WBC 9.0 RBC 3.23 L Hgb 10.8 L Hct 32.6 L MCV 100.9 MCH 33 MCHC 33.1 RDW 13.5 Plt Count 209 MPV 10.2 Neut % (Auto) 56.0 Lymph % (Auto) 34.4 Cecil % (Auto) 6.0 Eos % (Auto) 3.0 Baso % (Auto) 0.3 Neut # (Auto) 5.1 Lymph # (Auto) 3.1 Cecil # (Auto) 0.5 Eos # (Auto) 0.3 Baso # (Auto) 0.0 Immature Gran % 0.3 Nucleated RBC % 0.0 Immature Gran # 0.03 Nucleated RBCs # 0.00 Immature Plt Fraction 0.0 Sodium 140 140 Potassium 4.1 4.1 Chloride 108 H 108 H Carbon Dioxide 25 25 Anion Gap 11.1 11.1 BUN 12 13 Creatinine 0.70 0.70 GFR Calculation 112 112 BUN/Creatinine Ratio 17.00 18.00 Glucose 159 H 157 H Calculated Osmolality 281.4 281.4 Calcium 8.5 8.4 L Magnesium 2.4 Total Bilirubin 0.50 AST 87 H ALT 131 H Alkaline Phosphatase 57 Total Protein 6.0 L Albumin 3.2 L Globulin 2.8 Albumin/Globulin Ratio 1.1 DS: Provider Date of admission: 03/14/17 08:26 Primary care physician: . No PCP Attending physician on admission: Lisa Allred, Consults: 03/14/17 08:26 Consult to Cardiac Rehabilitation [CONS] Routine Reason for Cardiac Rehabilitation: Risk Factor Modification Other Consult Comment: Evaluate and recommend Discharging clinician: Lisa Allred, Expected date of discharge: 03/16/17
[2017-03-16 11:40] VITALS: BP 121/68
== END 2017-03-16 13:46 | disposition home or self-care (01) | DRG 247 ==
LOC: N.ED 07:20 → N.CC 08:18 → N.EDINP 08:26 → N.CC 09:55 → N.TELES 03-15 14:34
PROVIDERS: ADMIT Internal Medicine Cardiovascular Disease; ATTEND Internal Medicine Cardiovascular Disease
PROC: CLCCHCL (ICD-10-PCS; 2017-03-14 09:15)

== ENCOUNTER 2019-09-29 16:21 | Observation (INO) ==
[2019-09-29] MEDS ORDERED: KETOROLAC 30 MG/1 ML VIAL IV STA (16:44)
[2019-09-29] MEDS ORDERED: ASPIRIN 325 MG TABLET PO STA (16:44)
[2019-09-29 17:06] LABS: Basophils % 0.3 % (0.0-0.8); Eosinophils # 0.3 10*3/uL (0.0-0.87); Eosinophils % 3.2 % (0.00-10.9); Hemoglobin 13.9 GM/DL (12.0-16.0); Immature Granulocytes % 0.3 %; Immature Granulocytes Absolute 0.03 #; Lymphocytes % 35.2 % (21.3-54.2); Mean Corpuscular HGB Conc 33.1 GM/DL (32-36); Mean Corpuscular Volume 102.4 FL (87-102); Mean Platelet Volume 10.5 FL (9.6-12.0); Monocytes % 4.8 % (1.7-12.7); Neutrophils % 56.2 % (38.7-73.9); Platelet Count 210 T/CUMM (130-400); Red Cell Distribution Width 12.4 % (9.3-17.3); White Blood Count 8.6 T/CUMM (4-12)
[2019-09-29 17:07] LABS: Alanine Aminotransferase 110 U/L (13-56); Albumin 3.7 G/DL (3.4-5.0); Alkaline Phosphatase 98 U/L (45-117); Aspartate Amino Transferase 94 U/L (0-37); Blood Urea Nitrogen 9 MG/DL (7-18); Calcium 9.4 MG/DL (8.5-10.1); Estimated Glom Filtration Rate 107 ML/MIN; Glucose 88 MG/DL (74-106); Osmolality,Calculated 265.2 MOS/KG (273-304); Total Protein 7.6 G/DL (6.4-8.3); Troponin I < 0.015 NG/ML (0.00-0.045)
[2019-09-29 17:18] LABS: PT Patient Result 10.5 SECS (9.6-12.2); Partial Thromboplastin Time 25.4 SECS (20.8-36.0)
[2019-09-29 17:23] LABS: Apearance,Urine CLEAR (Clear); Bilirubin,Urine Negative (Negative); Blood, Urine Negative (Negative); Glucose,Urine (UA) Negative (Negative); Ketones,Urine 5 mg/dL (Negative); Mucus,Urine Many /LPF (Occasional); Nitrite,Urine Negative (Negative); Protein,Urine Negative; RBC,Urine 1 /HPF (0-4); Squamous Epithelial Cell,Urine Occasional /HPF (0-10); Urine Color Yellow (Yellow); Urine Specific Gravity 1.013 (1.001-1.035); Urine Urobilinogen < 2.0 EU/DL (0.2-1.0); WBC,Urine 1 /HPF (0-6)
[2019-09-29 17:34] LABS: Barbiturates Screen,Urine Negative (Negative); Benzodiazepines Screen,Urine Negative (Negative); Cannabinoid Screen,Urine Negative (Negative); Opiate Screen,Urine Positive (Negative); Phencyclidine Screen,Urine Negative (Negative)
[2019-09-29] MEDS ORDERED: hydrALAZINE 20 MG/1 ML VIAL IV STA (17:35)
[2019-09-29] MEDS ORDERED: hydrALAZINE 20 MG/1 ML VIAL ONE (17:36)
[2019-09-29] MEDS ORDERED: cloNIDine 0.1 MG TABLET PO STA ×2 (18:09→19:24)
[2019-09-29] MEDS ORDERED: DEXTROSE 10% 250 ML BAG IV PRN (19:27)
[2019-09-29] MEDS ORDERED: ONDANSETRON 4 MG/2 ML VIAL IV PRN (19:27)
[2019-09-29] MEDS ORDERED: ACETAMINOPHEN 500 MG TABLET PO PRN (19:27)
[2019-09-29] MEDS ORDERED: GLUCAGON 1 MG VIAL IM PRN (19:27)
[2019-09-29] MEDS ORDERED: clonazePAM 0.5 MG TABLET PO PRN (21:47)
[2019-09-29] MEDS: INSULIN REGULAR 100 UNIT/ML SUBCUT SCH (22:35)
[2019-09-29] MEDS: TICAGRELOR 90 MG TABLET PO SCH (22:35)
[2019-09-29] MEDS: BUDESONIDE/FORMOTEROL 160-4.5 INHALER 6 GM INH SCH (22:38)
[2019-09-30 05:16] LABS: Free T4 (Free Thyroxine) 1.15 NG/DL (0.76-1.46); Troponin I < 0.015 NG/ML (0.00-0.045)
[2019-09-30] MEDS ORDERED: LEVOTHYROXINE 50 MCG TABLET PO SCH (06:00)
[2019-09-30] MEDS ORDERED: metFORMIN 500 MG TABLET PO SCH (08:00)
[2019-09-30] MEDS: INSULIN REGULAR 100 UNIT/ML SUBCUT SCH ×2 (08:32→13:14)
[2019-09-30] MEDS ORDERED: cloNIDine 0.1 MG TABLET PO PRN (08:43)
[2019-09-30 08:50] LABS: Troponin I < 0.015 NG/ML (0.00-0.045)
[2019-09-30] MEDS ORDERED: SPIRONOLACTONE 25 MG TABLET PO SCH (09:00)
[2019-09-30] MEDS ORDERED: ASPIRIN EC 81 MG TABLET PO SCH (09:00)
[2019-09-30] MEDS ORDERED: ISOSORBIDE MONONITRATE 30 MG TABLET PO SCH (09:00)
[2019-09-30] MEDS ORDERED: MONTELUKAST 10 MG TABLET PO SCH (09:00)
[2019-09-30] MEDS ORDERED: PANTOPRAZOLE 40 MG TABLET PO SCH (09:00)
[2019-09-30] MEDS ORDERED: ESCITALOPRAM 10 MG TABLET PO SCH (09:00)
[2019-09-30] MEDS ORDERED: OLMESARTAN 5 MG TABLET PO SCH (09:00)
[2019-09-30] MEDS ORDERED: NEBIVOLOL 10 MG TABLET PO SCH (09:00)
[2019-09-30] MEDS: TICAGRELOR 90 MG TABLET PO SCH (09:27)
[2019-09-30] MEDS: BUDESONIDE/FORMOTEROL 160-4.5 INHALER 6 GM INH SCH (09:28)
[2019-09-30 12:25] VITALS: BP 110/60
== END 2019-09-30 14:40 | disposition home or self-care (01) ==
LOC: EDBD → EDUNIT# → N.EDINP 16:21 → N.ED 16:21 → N.2W 20:08
PROVIDERS: ADMIT Internal Medicine Cardiovascular Disease; ATTEND Internal Medicine Cardiovascular Disease